=== PATIENT | male | born 1995 | race Caucasian/White ===

== ENCOUNTER 2021-12-17 12:42 | Emergency (ER) | payer OTHER, SELFPAY ==
[2021-12-17 13:02] VITALS: BP 134/89; PULSE 97; RESP 22; TEMP 37.1; O2SAT 100
--- NOTE | 2021-12-17 13:06 | DI.RAD.S_ITS ---
PROCEDURE: XR CHEST 1V INDICATIONS: chest pain TECHNIQUE: One view of the chest was acquired. COMPARISON: None. FINDINGS: Surgical changes and devices: None. Lungs and pleura: Lungs are clear. No pleural effusions or pneumothorax. Mediastinum: Mediastinal contours appear normal. Heart size is normal. Bones and chest wall: No suspicious bony lesions. Overlying soft tissues appear unremarkable. IMPRESSION: No acute process. Dictated by: Lola Lara M.D. on 12/17/2021 at 13:45 Approved by: Lola Lara M.D. on 12/17/2021 at 13:45
[2021-12-17 13:23] LABS: Add Manual Diff / Slide Review NO; Basophils Absolute Auto 100 /uL (0-100); Basophils Percent Auto 0.7 % (0-2); Eosinophils Absolute Auto 500 /uL (0-450); Eosinophils Percent Auto 3.5 % (2-4); Hematocrit 41.4 % (41-53); Hemoglobin 14.7 g/dL (13.5-17.5); Lymphocytes Absolute Auto 2600 /uL (1100-4500); Lymphocytes Percent Auto 19.4 % (25-40); Mean Corpuscular HGB Conc 35.5 % (30-36); Mean Corpuscular Hemoglobin 34.3 PG (26-34); Mean Corpuscular Volume 96.5 fL (80-100); Monocytes Absolute Auto 1100 /uL (0-900); Monocytes Percent Auto 8.3 % (3-14); Neutrophils Absolute Auto 9000 /uL (1500-7000); Neutrophils Percent Auto 68.1 % (50-75); Platelet Count 300 X10^3/uL (150-400); Red Blood Cell Count 4.29 X10^6/uL (4.5-5.9); White Blood Cell Count 13.2 X10^3/uL (4.5-11.0)
--- NOTE | 2021-12-17 13:31 | ED.CHESTPAIN ---
HPI - Chest Pain General Chief Complaint: Chest Pain Stated Complaint: Chest pain Time Seen by Provider: 12/17/21 13:15 Source: patient Mode of arrival: Ambulatory History of Present Illness HPI narrative: Patient is a healthy 26-year-old male who presents with 2 days of chest discomfort. He says it hurts every time he takes a breath it is sharp and stabbing. He says it hurts every time he breathes or moves. He was unable to sleep last night could not get comfortable. He has not had any fevers or shortness of breath. It seems to be in the center of his chest really nonradiating sometimes on the right. Id he is only short of breath as he feels like he cannot take a deep breath. He has never had anything like this before. Patient states that he does smoke and vape Related Data Allergies Allergy/AdvReac Type Severity Reaction Status Date / Time No Known Drug Allergies Allergy Verified 12/17/21 13:05 Review of Systems Review of Systems Narrative: GENERAL: Denies chills, fatigue, malaise, fever, sweats, travel HEENT: Denies sinus pain, ear pain, sore throat, difficulty swallowing, neck pain RESPIRATORY: Denies dyspnea, cough, wheezing, hemoptysis, sputum. CARDIOVASCULAR: see HPI GASTROINTESTINAL: Denies nausea, vomiting, abdominal pain, diarrhea, constipation, melena. : Denies dysuria, frequency, incontinence, hematuria, urinary retention, flank pain. MUSCULOSKELETAL: Denies weakness, joint pain, or bony pain SKIN: No rash, no erythema, no pruritus NEUROLOGIC: Denies weakness, dizziness, headache, numbness, change in speech, confusion PSYCHIATRIC: No concerning psychosocial issues. 12 point review of systems is negative except for those stated above and HPI Patient History Social History Smoking Status: Current every day smoker Smoking Status: Current every day smoker tobacco type: cigarettes and vaping Exam Initial Vital Signs Initial Vital Signs: Vital Signs Temperature 98.7 F 12/17/21 13:02 Pulse Rate 97 H 12/17/21 13:02 Respiratory Rate 22 12/17/21 13:02 Blood Pressure 134/89 12/17/21 13:02 Pulse Oximetry 100 12/17/21 13:02 Oxygen Delivery Method 12/17/21 13:02 GENERAL: Young 26-year-old male appears in obvious pain bracing and her HEENT: Head atraumatic,EOMI, pupils reactive, face symmetric, [moist] mucous membranes CARDIOVASCULAR: Regular rate and rhythm without murmurs, rubs or gallops. RESPIRATORY: Breath sounds equal bilaterally, no wheezes rales or rhonchi. ABDOMEN: Soft, nontender. Normoactive bowel sounds all 4 quadrants. No guarding or rebound. EXTREMITIES: Normal range of motion, no clubbing or edema. Neurovascularly intact NEUROLOGICAL: Alert and oriented x4.Normal gait and speech. SKIN: Warm, dry, no laceration, no petechiae, no rashes or lesions. Course Orders Ordered: ED Orders 12/17/21 13:06 XR chest 1V Stat EKG-12 Lead Stat 12/17/21 13:17 Complete Blood Count AUTO DIFF Stat Comprehensive Metabolic Panel Stat D Dimer Stat Lipase Stat Magnesium Stat NT-proBNP (BNP-Adult 18+) Stat Procalcitonin Stat Troponin & CK Cardiac Panel Stat 12/17/21 14:12 COVID19 -Nasal RAPID/Pre-Proc Stat Discontinued Medications Aspirin (Aspirin 81 Mg Chew Tab) 324 mg PO NOW ONE Stop: 12/17/21 13:07 Last Admin: 12/17/21 14:17 Dose: 324 mg Documented By: JESSICA Ketorolac Tromethamine (Ketorolac 30 Mg/Ml Vial) 15 mg IV NOW ONE Stop: 12/17/21 13:33 Last Admin: 12/17/21 14:17 Dose: 15 mg Documented By: JESSICA Morphine Sulfate (Morphine 4 Mg/Ml Inj) 4 mg IV NOW ONE Stop: 12/17/21 13:40 Last Admin: 12/17/21 14:17 Dose: 4 mg Documented By: JESSICA Vital Signs Vital signs: Vital Signs - 8 hr 12/17/21 13:02 12/17/21 16:00 12/17/21 16:00 Temperature 98.7 F Pulse Rate 97 H 88 Respiratory Rate 22 Blood Pressure 134/89 120/74 Pulse Oximetry 100 97 Oxygen Delivery Method Room Air 12/17/21 16:30 12/17/21 16:30 Temperature Pulse Rate 70 Respiratory Rate Blood Pressure 112/70 Pulse Oximetry 97 Oxygen Delivery Method MDM - Chest Pain Lab Data Result diagrams: 12/17/21 13:17 12/17/21 13:17 Labs: Lab Results 12/17/21 12/17/21 12/17/21 Range/Units 13:17 13:17 13:17 WBC 13.2 H (4.5-11.0) X10^3/uL RBC 4.29 L (4.5-5.9) X10^6/uL Hgb 14.7 (13.5-17.5) g/dL Hct 41.4 (41-53) % MCV 96.5 (80-100) fL MCH 34.3 H (26-34) PG MCHC 35.5 (30-36) % RDW 13.0 (11.6-14.8) % Plt Count 300 (150-400) X10^3/uL Neut % (Auto) 68.1 (50-75) % Lymph % (Auto) 19.4 L (25-40) % [place] % (Auto) 8.3 (3-14) % Eos % (Auto) 3.5 (2-4) % Baso % (Auto) 0.7 (0-2) % Neut # (Auto) 9000 H (1273-6387) /uL Lymph # (Auto) 2600 (0537-8519) /uL [place] # (Auto) 1100 H (0-900) /uL Eos # (Auto) 500 H (0-450) /uL Baso # (Auto) 100 (0-100) /uL D-Dimer 207 (<230) ng/mL Sodium 140 (137-145) mmol/L Potassium 4.3 (3.4-5.1) mmol/L Chloride 100 (98-107) mmol/L Carbon Dioxide 30 (22-32) mmol/L BUN 14 (9-20) mg/dL Creatinine 0.97 (0.66-1.25) mg/dL Estimated GFR > 60 (>60) mL/min BUN/Creatinine Ratio 14.4 (6-22) Glucose 105 H (70-100) mg/dL Calcium 10.0 (8.4-10.2) mg/dL Magnesium 2.0 (1.6-2.3) mg/dL Total Bilirubin 0.6 (0.2-1.3) mg/dL AST 40 (17-59) IU/L ALT 61 H (<50) IU/L Alkaline Phosphatase 91 (38-126) U/L Total Creatine Kinase 79 (55-170) U/L CK-MB (CK-2) TNP CK-MB (CK-2) Rel Index TNP Troponin I < 0.012 (0.01-0.034) ng/mL NT-Pro-B Natriuret Pep 14 (<125) pg/mL Total Protein 8.9 H (6.3-8.2) g/dL Albumin 5.1 H (3.5-5.0) g/dL Globulin 3.8 (1.7-4.1) g/dL Albumin/Globulin Ratio 1.3 (1.0-2.8) Lipase 76 (23-300) U/L Procalcitonin 0.05 (<0.5) ng/mL SARS-CoV-2 (PCR) (Negative) 12/17/21 12/17/21 Range/Units 13:17 14:12 WBC (4.5-11.0) X10^3/uL RBC (4.5-5.9) X10^6/uL Hgb (13.5-17.5) g/dL Hct (41-53) % MCV (80-100) fL MCH (26-34) PG MCHC (30-36) % RDW (11.6-14.8) % Plt Count (150-400) X10^3/uL Neut % (Auto) (50-75) % Lymph % (Auto) (25-40) % [place] % (Auto) (3-14) % Eos % (Auto) (2-4) % Baso % (Auto) (0-2) % Neut # (Auto) (5068-6027) /uL Lymph # (Auto) (6847-5444) /uL [place] # (Auto) (0-900) /uL Eos # (Auto) (0-450) /uL Baso # (Auto) (0-100) /uL D-Dimer (<230) ng/mL Sodium (137-145) mmol/L Potassium (3.4-5.1) mmol/L Chloride (98-107) mmol/L Carbon Dioxide (22-32) mmol/L BUN (9-20) mg/dL Creatinine (0.66-1.25) mg/dL Estimated GFR (>60) mL/min BUN/Creatinine Ratio (6-22) Glucose (70-100) mg/dL Calcium (8.4-10.2) mg/dL Magnesium (1.6-2.3) mg/dL Total Bilirubin (0.2-1.3) mg/dL AST (17-59) IU/L ALT (<50) IU/L Alkaline Phosphatase (38-126) U/L Total Creatine Kinase (55-170) U/L CK-MB (CK-2) CK-MB (CK-2) Rel Index Troponin I (0.01-0.034) ng/mL NT-Pro-B Natriuret Pep Cancelled (<125) pg/mL Total Protein (6.3-8.2) g/dL Albumin (3.5-5.0) g/dL Globulin (1.7-4.1) g/dL Albumin/Globulin Ratio (1.0-2.8) Lipase (23-300) U/L Procalcitonin Cancelled (<0.5) ng/mL SARS-CoV-2 (PCR) Negative (Negative) Imaging Data Chest x-ray: Radiologist's Impression: ROSA Mosley [id number] XRay Report Signed Patient: Ralph St MR#: [id number] : 1995 Acct:[id number] Age/Sex: 26 / M Date of Service: 12/17/21 Loc: ED Accession Number: [id number] ?? Procedure: XR chest 1V Ordering Provider: Nan Dinh D.O. PROCEDURE:? XR CHEST 1V ? INDICATIONS:? chest pain ? TECHNIQUE:? One view of the chest was acquired.? ? COMPARISON:? None. ? FINDINGS:? ? Surgical changes and devices:? None.? ? Lungs and pleura:? Lungs are clear.? No pleural effusions or pneumothorax.? ? Mediastinum:? Mediastinal contours appear normal.? Heart size is normal.? ? Bones and chest wall:? No suspicious bony lesions.? Overlying soft tissues appear unremarkable.? ? IMPRESSION:? No acute process. ? ? Dictated by: Lola Lara M.D. on 12/17/2021 at 13:45 ? ? ECG Data Interpretation: Sinus rhythm rate 90 p.r. interval 136 QRS [address] changes no T-wave inversion [facility] Narrative Medical decision making narrative: Patient is feeling significantly better after Toradol and morphine. I did did perform a bedside ultrasound good lung pleuritic movement bilaterally no pericardial effusion noted. Troponin is in blood work overall reassuring. Likely of pleurisy possibly from vaping/smoking. No sign of pneumonia. Patient's pain is really not cardiac in nature. Pain has been ongoing for 24 hours he has no EKG changes. Head seems to be worse with movement and breathing which is more consistent with pleurisy rather than coronary artery disease. D-dimer is negative BNP is negative. Overall he is clinically improved while in the emergency department. Discharge Plan Departure Patient Disposition: Home Clinical Impression: Acute pleurisy without pleural effusion Instructions: Pleurisy Activity Restrictions/Additional Instructions: *You have been diagnosed with pleurisy *What to do: You likely have inflammation around the lining of your lungs. Recommend NSAIDs such as ibuprofen for the next 1-2 weeks. I also recommend stopping facing and smoking his this may be causing it. *Continue to take medications as directed Ibuprofen 800 mg every 8 hours her about 1-2 weeks *Follow up with your primary care provider in 2-3 days or call [phone] *Return to ER if you should have increasing pain fever shortness of breath or any new, worsening or concerning symptoms Referrals: [facility] [Provider Group] Visit Report Forms: Patient Portal/API
[2021-12-17 13:34] LABS: D Dimer 207 ng/mL (<230)
[2021-12-17 13:36] LABS: Alanine Aminotransferase 61 IU/L (<50); Albumin 5.1 g/dL (3.5-5.0); Albumin Globulin Ratio 1.3 (1.0-2.8); Alkaline Phosphatase 91 U/L (38-126); Aspartate Aminotransferase 40 IU/L (17-59); BUN Creatinine Ratio 14.4 (6-22); Bilirubin Total 0.6 mg/dL (0.2-1.3); Blood Urea Nitrogen 14 mg/dL (9-20); Carbon Dioxide 30 mmol/L (22-32); Chloride 100 mmol/L (98-107); Creatine Kinase 79 U/L (55-170); Estimated Glomerular Filt Rate > 60 mL/min (>60); Globulin 3.8 g/dL (1.7-4.1); Glucose 105 mg/dL (70-100); HEMOLYSIS < 15 (0-50); Lipase 76 U/L (23-300); Potassium 4.3 mmol/L (3.4-5.1); Sodium 140 mmol/L (137-145); Total Protein 8.9 g/dL (6.3-8.2)
[2021-12-17 13:48] LABS: NT-proBNP (BNP-Adult 18+) 14 pg/mL (<125); Troponin I < 0.012 ng/mL (0.01-0.034)
[2021-12-17 13:52] LABS: Procalcitonin 0.05 ng/mL (<0.5)
[2021-12-17] MEDS: ASPIRIN 81 MG CHEW TAB 324 MG PO (14:17)
[2021-12-17] MEDS: KETOROLAC 30 MG/ML VIAL 15 MG IV (14:17)
[2021-12-17] MEDS: MORPHINE 4 MG/ML INJ IV (14:17)
[2021-12-17 14:37] LABS: COVID19 -Nasal RAPID Negative (Negative)
[2021-12-17 16:00] VITALS: BP 120/74; PULSE 88; O2SAT 97
[2021-12-17 16:30] VITALS: BP 112/70; PULSE 70; O2SAT 97
== END 2021-12-17 16:43 | disposition home or self-care (01) ==
PROVIDERS: Emergency Provider Emergency Medicine
DX: R09.1 Pleurisy (principal); Z20.822 Contact with and (suspected) exposure to COVID-19
CPT/HCPCS: 36415; 71045; 80053; 82550; 83690; 83735; 83880; 84145; 84484; 85025; 85379; 87635; 93005; 96374; 96375; 99284; C9803; J1885; J2270

== ENCOUNTER 2022-02-03 13:55 | Emergency (ER) | payer OTHER, SELFPAY ==
[2022-02-03] VITALS (16 sets, daily range): BP systolic 109–133; BP diastolic 59–77; PULSE 63–98; RESP 12–24; TEMP 36.9; O2SAT 96–100; BMI 21.2
--- NOTE | 2022-02-03 13:58 | DI.RAD.S_ITS ---
PROCEDURE: XR CHEST 1V INDICATIONS: chest pain TECHNIQUE: One view of the chest was acquired. COMPARISON: [facility], CR, XR CHEST 1V, 12/17/2021, 13:28. FINDINGS: Surgical changes and devices: None. Lungs and pleura: Small right apical pneumothorax. Small right upper lobe opacity is seen uncertain etiology. Lungs are otherwise clear. No pleural effusion. Mediastinum: Mediastinal contours appear normal. Heart size is normal. Bones and chest wall: No suspicious bony lesions. Overlying soft tissues appear unremarkable. IMPRESSION: 1. Small right apical pneumothorax. 2. Small right upper lobe airspace opacity, possibly within a pneumatocele or cavitation. Tuberculosis is not excluded. CT could be performed for further evaluation if indicated clinically. Dictated by: Rajendra Chowdhury M.D. on 02/03/2022 at 13:33 Approved by: Rajendra Chowdhury M.D. on 02/03/2022 at 13:39
[2022-02-03 14:42] LABS: COVID19 -Nasal RAPID Negative (Negative)
[2022-02-03 15:14] LABS: Add Manual Diff / Slide Review NO; Basophils Absolute Auto 100 /uL (0-100); Basophils Percent Auto 0.4 % (0-2); Eosinophils Absolute Auto 800 /uL (0-450); Eosinophils Percent Auto 4.6 % (2-4); Hematocrit 41.8 % (41-53); Hemoglobin 14.6 g/dL (13.5-17.5); Lymphocytes Absolute Auto 1700 /uL (1100-4500); Lymphocytes Percent Auto 9.3 % (25-40); Mean Corpuscular Hemoglobin 34.2 PG (26-34); Mean Corpuscular Volume 97.6 fL (80-100); Monocytes Absolute Auto 1200 /uL (0-900); Monocytes Percent Auto 6.3 % (3-14); Neutrophils Absolute Auto 14700 /uL (1500-7000); Neutrophils Percent Auto 79.4 % (50-75); Platelet Count 282 X10^3/uL (150-400); Red Blood Cell Count 4.28 X10^6/uL (4.5-5.9); Red Cell Distribution Width 13.3 % (11.6-14.8); White Blood Cell Count 18.5 X10^3/uL (4.5-11.0)
[2022-02-03 15:32] LABS: Erythrocyte Sedimentation Rate 22 MM/HR (0-15)
[2022-02-03 15:34] LABS: Alanine Aminotransferase 31 IU/L (<50); Albumin 4.5 g/dL (3.5-5.0); Albumin Globulin Ratio 1.1 (1.0-2.8); Alkaline Phosphatase 91 U/L (38-126); Aspartate Aminotransferase 37 IU/L (17-59); BUN Creatinine Ratio 14.8 (6-22); Bilirubin Total 1.3 mg/dL (0.2-1.3); Blood Urea Nitrogen 12 mg/dL (9-20); Calcium 9.2 mg/dL (8.4-10.2); Carbon Dioxide 23 mmol/L (22-32); Chloride 104 mmol/L (98-107); Creatine Kinase 250 U/L (55-170); Estimated Glomerular Filt Rate > 60 mL/min (>60); Globulin 4.1 g/dL (1.7-4.1); Glucose 84 mg/dL (70-100); Lipase 57 U/L (23-300); Potassium 4.2 mmol/L (3.4-5.1); Sodium 139 mmol/L (137-145); Total Protein 8.6 g/dL (6.3-8.2)
--- NOTE | 2022-02-03 15:34 | PC.NURSE ---
placed on 15L NRB per request from Dr. Wasserman.
--- NOTE | 2022-02-03 15:38 | ED.CHESTPAIN ---
HPI - Chest Pain <Unique Wasserman DO - Last Filed: 02/04/22 20:36> General Chief Complaint: Chest Pain Stated Complaint: Chest pain Time Seen by Provider: 02/03/22 14:49 Source: patient Mode of arrival: Ambulatory Limitations: no limitations Limitations: no limitations History of Present Illness HPI narrative: This is a 26-year-old male who comes emergency department with complaint of right-sided chest pain that started while having a coughing fit and about 11:00 a.m. this morning. Patient states he is had 1 prior episode in the past and was told he had pleurisy. Patient states he is had upper respiratory congestion with cough with green productive sputum for several days. No fevers. No chest pain until after the coughing fit. Patient states he has pleuritic chest pain. He is not sure if he really feels short of breath or if it just hurts to take a deep breath. No nausea, no vomiting, no swelling of extremities, no other GI or urinary complaints. Patient states last time he had this happen it was the same there was a coughing he developed pain all of the sudden and was seen in the emergency department and told he had pleurisy. Patient denies any daily medications, no surgeries. Patient uses tobacco occasional vaping but not regularly, occasional alcohol but not regularly, occasional THC denies other illicit. Denies any IV drug use. Denies any recent travel. No known TB contacts. No homeless or shelter contacts. Patient does not any known drug allergies. No family history of pneumothorax, patient does not have any history of pneumothorax. 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 Related Data Allergies Allergy/AdvReac Type Severity Reaction Status Date / Time No Known Drug Allergies Allergy Verified 12/17/21 13:05 Review of Systems <Unique Wasserman DO - Last Filed: 02/04/22 20:36> Review of Systems ROS Unobtainable: All systems reviewed & are unremarkable except as noted in HPI and below Patient History <Unique Wasserman DO - Last Filed: 02/04/22 20:36> Medical History (Updated 02/03/22 @ 21:46 by Jeff Monet DO) Healthy adult Social History Smoking Status: Current every day smoker Smoking Status: Current every day smoker tobacco type: cigarettes and vaping Exam <Unique Wasserman DO - Last Filed: 02/04/22 20:36> Narrative Exam Narrative: GENERAL: Alert and oriented x three, thin muscular male in mild distress. HEENT: Head normocephalic, atraumatic, EOMI, pupils reactive, face symmetric, moist mucous membranes NECK: Supple, full range of motion CARDIOVASCULAR: Regular rate and rhythm without murmurs, rubs or gallops. No JVD. RESPIRATORY: Breath sounds equal bilaterally, no wheezes rales or rhonchi. Slightly decreased sounds in the right upper, no tachypnea accessory muscle use. ABDOMEN: Soft, nontender. Normoactive bowel sounds all 4 quadrants. No guarding or rebound, rigidity, no mass : No CVA tenderness EXTREMITIES: Normal range of motion, no clubbing or edema. Neurovascularly intact NEUROLOGICAL: Cranial nerves II through XII grossly intact. Moving all extremities SKIN: Warm, dry, no petechiae, no rashes or lesions. Initial Vital Signs Initial Vital Signs: Vital Signs Temperature 98.4 F 02/03/22 13:59 Pulse Rate 98 H 02/03/22 13:59 Respiratory Rate 24 02/03/22 13:59 Blood Pressure 124/77 02/03/22 13:59 Pulse Oximetry 96 02/03/22 13:59 Oxygen Delivery Method 02/03/22 13:59 <Jeff Monet DO - Last Filed: 02/03/22 21:47> Initial Vital Signs Initial Vital Signs: Vital Signs Temperature 98.4 F 02/03/22 13:59 Pulse Rate 98 H 02/03/22 13:59 Respiratory Rate 24 02/03/22 13:59 Blood Pressure 124/77 02/03/22 13:59 Pulse Oximetry 96 02/03/22 13:59 Oxygen Delivery Method 02/03/22 13:59 Course <Unique Wasserman DO - Last Filed: 02/04/22 20:36> Orders Ordered: Discontinued Medications Piperacillin Sod/Tazobactam (Sod 4.5 gm/ Sodium Chloride) 100 mls @ 200 mls/hr IV NOW ONE Stop: 02/03/22 17:17 Last Infusion: 02/03/22 18:22 Dose: 0 mls/hr Documented By: Admin: 02/03/22 17:46 Dose: 200 mls/hr Documented By: AT Clindamycin Phosphate (Cleocin) 900 mg in 50 mls @ 50 mls/hr IV NOW ONE Stop: 02/03/22 18:17 Last Infusion: 02/03/22 19:30 Dose: 0 mls/hr Documented By: Admin: 02/03/22 18:22 Dose: 50 mls/hr Documented By: AT Piperacillin Sod/Tazobactam (Sod 4.5 gm/ Sodium Chloride) 100 mls @ 25 mls/hr IV Q8H VESTA Clindamycin Phosphate (Cleocin) 900 mg in 50 mls @ 50 mls/hr IV Q6H VESTA Piperacillin Sod/Tazobactam (Sod 3.375 gm/ Sodium Chloride) 100 mls @ 25 mls/hr IV Q8H VESTA Last Admin: 02/03/22 22:09 Dose: Not Given Documented By: AT Ketorolac Tromethamine (Ketorolac 30 Mg/Ml Vial) 15 mg IV NOW ONE Stop: 02/03/22 18:48 Last Admin: 02/03/22 19:35 Dose: 15 mg Documented By: KF Morphine Sulfate (Morphine 2 Mg/Ml Inj) 2 mg IV Q4HR PRN PRN Reason: Pain, Moderate (4-6) Last Admin: 02/03/22 22:38 Dose: 2 mg Documented By: Admin: 02/03/22 17:47 Dose: 2 mg Documented By: AT Ondansetron HCl (Ondansetron 4 Mg/2 Ml Inj) 4 mg IV Q6HR PRN PRN Reason: Nausea And Vomiting Vital Signs Vital signs: Vital Signs - 8 hr 02/03/22 13:59 02/03/22 15:11 02/03/22 15:34 Temperature 98.4 F Pulse Rate 98 H 67 68 Respiratory Rate 24 22 20 Blood Pressure 124/77 133/64 Pulse Oximetry 96 100 100 Oxygen Delivery Method Room Air Room Air Non -Rebreather Oxygen Flow Rate 15 02/03/22 17:41 02/03/22 15:30 02/03/22 16:00 Temperature Pulse Rate 75 65 Respiratory Rate 18 20 Blood Pressure 124/65 124/65 Pulse Oximetry 100 Oxygen Delivery Method Nasal Cannula Non -Rebreather Non -Rebreather Oxygen Flow Rate 2 15 15 02/03/22 18:25 02/03/22 18:30 02/03/22 19:00 Temperature Pulse Rate 63 85 Respiratory Rate 17 22 Blood Pressure 133/62 Pulse Oximetry 100 100 Oxygen Delivery Method Oxygen Flow Rate 02/03/22 19:00 Temperature Pulse Rate 94 H Respiratory Rate 22 Blood Pressure Pulse Oximetry 100 Oxygen Delivery Method Oxygen Flow Rate <Jeff Monet, - Last Filed: 02/03/22 21:47> Orders Ordered: Discontinued Medications Piperacillin Sod/Tazobactam (Sod 4.5 gm/ Sodium Chloride) 100 mls @ 200 mls/hr IV NOW ONE Stop: 02/03/22 17:17 Last Infusion: 02/03/22 18:22 Dose: 0 mls/hr Documented By: Admin: 02/03/22 17:46 Dose: 200 mls/hr Documented By: AT Clindamycin Phosphate (Cleocin) 900 mg in 50 mls @ 50 mls/hr IV NOW ONE Stop: 02/03/22 18:17 Last Infusion: 02/03/22 19:30 Dose: 0 mls/hr Documented By: Admin: 02/03/22 18:22 Dose: 50 mls/hr Documented By: AT Piperacillin Sod/Tazobactam (Sod 4.5 gm/ Sodium Chloride) 100 mls @ 25 mls/hr IV Q8H VESTA Clindamycin Phosphate (Cleocin) 900 mg in 50 mls @ 50 mls/hr IV Q6H VESTA Piperacillin Sod/Tazobactam (Sod 3.375 gm/ Sodium Chloride) 100 mls @ 25 mls/hr IV Q8H VESTA Last Admin: 02/03/22 22:09 Dose: Not Given Documented By: AT Ketorolac Tromethamine (Ketorolac 30 Mg/Ml Vial) 15 mg IV NOW ONE Stop: 02/03/22 18:48 Last Admin: 02/03/22 19:35 Dose: 15 mg Documented By: KF Morphine Sulfate (Morphine 2 Mg/Ml Inj) 2 mg IV Q4HR PRN PRN Reason: Pain, Moderate (4-6) Last Admin: 02/03/22 22:38 Dose: 2 mg Documented By: Admin: 02/03/22 17:47 Dose: 2 mg Documented By: AT Ondansetron HCl (Ondansetron 4 Mg/2 Ml Inj) 4 mg IV Q6HR PRN PRN Reason: Nausea And Vomiting Vital Signs Vital signs: Vital Signs - 8 hr 02/03/22 13:59 02/03/22 15:11 02/03/22 15:34 Temperature 98.4 F Pulse Rate 98 H 67 68 Respiratory Rate 24 22 20 Blood Pressure 124/77 133/64 Pulse Oximetry 96 100 100 Oxygen Delivery Method Room Air Room Air Non -Rebreather Oxygen Flow Rate 15 02/03/22 17:41 02/03/22 15:30 02/03/22 16:00 Temperature Pulse Rate 75 65 Respiratory Rate 18 20 Blood Pressure 124/65 124/65 Pulse Oximetry 100 Oxygen Delivery Method Nasal Cannula Non -Rebreather Non -Rebreather Oxygen Flow Rate 2 15 15 02/03/22 18:25 02/03/22 18:30 02/03/22 19:00 Temperature Pulse Rate 63 85 Respiratory Rate 17 22 Blood Pressure 133/62 Pulse Oximetry 100 100 Oxygen Delivery Method Oxygen Flow Rate 02/03/22 19:00 Temperature Pulse Rate 94 H Respiratory Rate 22 Blood Pressure Pulse Oximetry 100 Oxygen Delivery Method Oxygen Flow Rate MDM - Chest Pain <Unique Wasserman, - Last Filed: 02/04/22 20:36> Lab Data Result diagrams: 02/03/22 15:03 02/03/22 15:03 Labs: Lab Results 02/03/22 02/03/22 02/03/22 Range/Units 14:02 15:03 15:03 WBC 18.5 H (4.5-11.0) X10^3/uL RBC 4.28 L (4.5-5.9) X10^6/uL Hgb 14.6 (13.5-17.5) g/dL Hct 41.8 (41-53) % MCV 97.6 (80-100) fL MCH 34.2 H (26-34) PG MCHC 35.0 (30-36) % RDW 13.3 (11.6-14.8) % Plt Count 282 (150-400) X10^3/uL Neut % (Auto) 79.4 H (50-75) % Lymph % (Auto) 9.3 L (25-40) % [place] % (Auto) 6.3 (3-14) % Eos % (Auto) 4.6 H (2-4) % Baso % (Auto) 0.4 (0-2) % Neut # (Auto) 67192 H (3075-7212) /uL Lymph # (Auto) 1700 (5420-9326) /uL [place] # (Auto) 1200 H (0-900) /uL Eos # (Auto) 800 H (0-450) /uL Baso # (Auto) 100 (0-100) /uL ESR (0-15) MM/HR Sodium 139 (137-145) mmol/L Potassium 4.2 (3.4-5.1) mmol/L Chloride 104 (98-107) mmol/L Carbon Dioxide 23 (22-32) mmol/L BUN 12 (9-20) mg/dL Creatinine 0.81 (0.66-1.25) mg/dL Estimated GFR > 60 (>60) mL/min BUN/Creatinine Ratio 14.8 (6-22) Glucose 84 (70-100) mg/dL Lactate (0.7-2.1) mmol/L Calcium 9.2 (8.4-10.2) mg/dL Magnesium 2.0 (1.6-2.3) mg/dL Total Bilirubin 1.3 (0.2-1.3) mg/dL AST 37 (17-59) IU/L ALT 31 (<50) IU/L Alkaline Phosphatase 91 (38-126) U/L Total Creatine Kinase 250 H (55-170) U/L CK-MB (CK-2) < 0.22 (<2.37) ng/mL CK-MB (CK-2) Rel Index 0.1 L (1.5-5.0) % Troponin I < 0.012 (0.01-0.034) ng/mL C-Reactive Protein (<1.0) mg/dL NT-Pro-B Natriuret Pep (<125) pg/mL Total Protein 8.6 H (6.3-8.2) g/dL Albumin 4.5 (3.5-5.0) g/dL Globulin 4.1 (1.7-4.1) g/dL Albumin/Globulin Ratio 1.1 (1.0-2.8) Lipase 57 (23-300) U/L SARS-CoV-2 (PCR) Negative (Negative) 02/03/22 02/03/22 02/03/22 Range/Units 15:03 15:03 15:03 WBC (4.5-11.0) X10^3/uL RBC (4.5-5.9) X10^6/uL Hgb (13.5-17.5) g/dL Hct (41-53) % MCV (80-100) fL MCH (26-34) PG MCHC (30-36) % RDW (11.6-14.8) % Plt Count (150-400) X10^3/uL Neut % (Auto) (50-75) % Lymph % (Auto) (25-40) % [place] % (Auto) (3-14) % Eos % (Auto) (2-4) % Baso % (Auto) (0-2) % Neut # (Auto) (0862-5490) /uL Lymph # (Auto) (0541-4511) /uL [place] # (Auto) (0-900) /uL Eos # (Auto) (0-450) /uL Baso # (Auto) (0-100) /uL ESR 22 H (0-15) MM/HR Sodium (137-145) mmol/L Potassium (3.4-5.1) mmol/L Chloride (98-107) mmol/L Carbon Dioxide (22-32) mmol/L BUN (9-20) mg/dL Creatinine (0.66-1.25) mg/dL Estimated GFR (>60) mL/min BUN/Creatinine Ratio (6-22) Glucose (70-100) mg/dL Lactate 1.1 (0.7-2.1) mmol/L Calcium (8.4-10.2) mg/dL Magnesium (1.6-2.3) mg/dL Total Bilirubin (0.2-1.3) mg/dL AST (17-59) IU/L ALT (<50) IU/L Alkaline Phosphatase (38-126) U/L Total Creatine Kinase (55-170) U/L CK-MB (CK-2) (<2.37) ng/mL CK-MB (CK-2) Rel Index (1.5-5.0) % Troponin I (0.01-0.034) ng/mL C-Reactive Protein 3.0 H (<1.0) mg/dL NT-Pro-B Natriuret Pep 22 (<125) pg/mL Total Protein (6.3-8.2) g/dL Albumin (3.5-5.0) g/dL Globulin (1.7-4.1) g/dL Albumin/Globulin Ratio (1.0-2.8) Lipase (23-300) U/L SARS-CoV-2 (PCR) (Negative) Imaging Data Chest x-ray: Radiologist's Impression: Ralph St??26??M??1995 ? Allergy/Adv: No Known Drug Allergies Close Chest X-Ray (Signed) Rajendra Chowdhury - 02/03/22 EKG Rpt. 12/17/21 Chest X-Ray (Signed) Lola Lara - 12/17/21 Launch?Image [address] [address] XRay Report Signed Patient: Ralph St MR#: [id number] : 1995 Acct:[id number] Age/Sex: 26 / M Date of Service: 02/03/22 Loc: ED Accession Number: [id number] ?? Procedure: XR chest 1V Ordering Provider: Unique Wasserman D.O. PROCEDURE:? XR CHEST 1V ? INDICATIONS:? chest pain ? TECHNIQUE:? One view of the chest was acquired.? ? COMPARISON:? [facility], , XR CHEST 1V, 12/17/2021, 13:28. ? FINDINGS:? ? Surgical changes and devices:? None.? ? Lungs and pleura:? Small right apical pneumothorax.? Small right upper lobe opacity is seen uncertain etiology.? Lungs are otherwise clear.? No pleural effusion. ? Mediastinum:? Mediastinal contours appear normal.? Heart size is normal.? ? Bones and chest wall:? No suspicious bony lesions.? Overlying soft tissues appear unremarkable.? ? IMPRESSION:? 1. Small right apical pneumothorax. 2. Small right upper lobe airspace opacity, possibly within a pneumatocele or cavitation. ?Tuberculosis is not excluded. CT could be performed for further evaluation if indicated clinically.? ? Dictated by: Rajendra Chowdhury M.D. on 02/03/2022 at 13:33 ? ? Approved by: Rajendra Chowdhury M.D. on 02/03/2022 at 13:39?? ECG Data Attestation: I personally reviewed and interpreted this ECG as follows: Prior ECG tracings: available for review Interpretation: Sinus rhythm rate 80 HI 138 QRS is 74 and QTC 399. No acute ST elevation or depression. Patient has prior from 12/17/2021 which appears similar. MDM Narrative Medical decision making narrative: 26-year-old male with sudden onset right-sided chest pain during a coughing fit patient has had recent productive green sputum he is noted to have small right apical pneumothorax, questionable right upper lobe opacity. Patient states he has been sick recently. He had similar episode once prior had no pneumothorax found at that time. Patient's labs today show leukocytosis, reassuring EKG does not show significant change appears similar to prior. CT chest was ordered. Patient has versus malignancy versus TB. Discussed with our general surgeon will hold off on chest tube as small apical pneumo appears quite stable. IV antibiotics were started, attempting to see about transfer for pulmonology, possible ID and interventional radiology which we do not have any of these available. Patient states he is otherwise healthy denies any IV drug use or other high risk factors he has traveled internationally but not since he was deployed in 2019 to [employer]. COVID is negative. Patient signed out to Dr. Monet while awaiting transfer, continuing to seek placement. Dr monet: Received turned over. Reviewed patient's history and physical exam. Reviewed patient's radiologic studies. Patient is stable. Is on 2 L of nasal cannula. Given the size of the pneumothorax we will hold on any chest tube for now unless he decompensates. Dr. Wasserman did administer antibiotics. Patient is active duty. Discussed with thoracic surgery at [facility] who accepts the patient in transfer. Patient is stable for transport. He was informed of the location in the need for transfer and he expressed understanding and agreement. <Jeff Monet, DO - Last Filed: 02/03/22 21:47> Lab Data Labs: Lab Results 02/03/22 02/03/22 02/03/22 Range/Units 14:02 15:03 15:03 WBC 18.5 H (4.5-11.0) X10^3/uL RBC 4.28 L (4.5-5.9) X10^6/uL Hgb 14.6 (13.5-17.5) g/dL Hct 41.8 (41-53) % MCV 97.6 (80-100) fL MCH 34.2 H (26-34) PG MCHC 35.0 (30-36) % RDW 13.3 (11.6-14.8) % Plt Count 282 (150-400) X10^3/uL Neut % (Auto) 79.4 H (50-75) % Lymph % (Auto) 9.3 L (25-40) % [place] % (Auto) 6.3 (3-14) % Eos % (Auto) 4.6 H (2-4) % Baso % (Auto) 0.4 (0-2) % Neut # (Auto) 33157 H (7513-7683) /uL Lymph # (Auto) 1700 (4645-8802) /uL [place] # (Auto) 1200 H (0-900) /uL Eos # (Auto) 800 H (0-450) /uL Baso # (Auto) 100 (0-100) /uL ESR (0-15) MM/HR Sodium 139 (137-145) mmol/L Potassium 4.2 (3.4-5.1) mmol/L Chloride 104 (98-107) mmol/L Carbon Dioxide 23 (22-32) mmol/L BUN 12 (9-20) mg/dL Creatinine 0.81 (0.66-1.25) mg/dL Estimated GFR > 60 (>60) mL/min BUN/Creatinine Ratio 14.8 (6-22) Glucose 84 (70-100) mg/dL Lactate (0.7-2.1) mmol/L Calcium 9.2 (8.4-10.2) mg/dL Magnesium 2.0 (1.6-2.3) mg/dL Total Bilirubin 1.3 (0.2-1.3) mg/dL AST 37 (17-59) IU/L ALT 31 (<50) IU/L Alkaline Phosphatase 91 (38-126) U/L Total Creatine Kinase 250 H (55-170) U/L CK-MB (CK-2) < 0.22 (<2.37) ng/mL CK-MB (CK-2) Rel Index 0.1 L (1.5-5.0) % Troponin I < 0.012 (0.01-0.034) ng/mL C-Reactive Protein (<1.0) mg/dL NT-Pro-B Natriuret Pep (<125) pg/mL Total Protein 8.6 H (6.3-8.2) g/dL Albumin 4.5 (3.5-5.0) g/dL Globulin 4.1 (1.7-4.1) g/dL Albumin/Globulin Ratio 1.1 (1.0-2.8) Lipase 57 (23-300) U/L SARS-CoV-2 (PCR) Negative (Negative) 02/03/22 02/03/22 02/03/22 Range/Units 15:03 15:03 15:03 WBC (4.5-11.0) X10^3/uL RBC (4.5-5.9) X10^6/uL Hgb (13.5-17.5) g/dL Hct (41-53) % MCV (80-100) fL MCH (26-34) PG MCHC (30-36) % RDW (11.6-14.8) % Plt Count (150-400) X10^3/uL Neut % (Auto) (50-75) % Lymph % (Auto) (25-40) % [place] % (Auto) (3-14) % Eos % (Auto) (2-4) % Baso % (Auto) (0-2) % Neut # (Auto) (7443-0863) /uL Lymph # (Auto) (9079-3795) /uL [place] # (Auto) (0-900) /uL Eos # (Auto) (0-450) /uL Baso # (Auto) (0-100) /uL ESR 22 H (0-15) MM/HR Sodium (137-145) mmol/L Potassium (3.4-5.1) mmol/L Chloride (98-107) mmol/L Carbon Dioxide (22-32) mmol/L BUN (9-20) mg/dL Creatinine (0.66-1.25) mg/dL Estimated GFR (>60) mL/min BUN/Creatinine Ratio (6-22) Glucose (70-100) mg/dL Lactate 1.1 (0.7-2.1) mmol/L Calcium (8.4-10.2) mg/dL Magnesium (1.6-2.3) mg/dL Total Bilirubin (0.2-1.3) mg/dL AST (17-59) IU/L ALT (<50) IU/L Alkaline Phosphatase (38-126) U/L Total Creatine Kinase (55-170) U/L CK-MB (CK-2) (<2.37) ng/mL CK-MB (CK-2) Rel Index (1.5-5.0) % Troponin I (0.01-0.034) ng/mL C-Reactive Protein 3.0 H (<1.0) mg/dL NT-Pro-B Natriuret Pep 22 (<125) pg/mL Total Protein (6.3-8.2) g/dL Albumin (3.5-5.0) g/dL Globulin (1.7-4.1) g/dL Albumin/Globulin Ratio (1.0-2.8) Lipase (23-300) U/L SARS-CoV-2 (PCR) (Negative) Imaging Data CT scan - chest: Radiologist's Impression: [place] [address] CT Scan Report Signed Patient: Ralph St MR#: [id number] : 1995 Acct:[id number] Age/Sex: 26 / M Date of Service: 02/03/22 Loc: Accession Number: [id number] ?? Procedure: CT chest w con Ordering Provider: Unique Wasserman D.O. PROCEDURE:? CT CHEST W CON ? INDICATIONS:? apical pneumo/right upper lobe opacity ? TECHNIQUE:? After the administration of intravenous contrast, 5 mm thick sections acquired from the pulmonary apices to the posterior costophrenic angles.? 1 mm axial lung, 5 mm thick coronal and sagittal reformats and 7 mm axial MIP were acquired.? For radiation dose reduction, the following was used:? automated exposure control, adjustment of mA and/or kV according to patient size.? ? COMPARISON:? [facility], CR, XR CHEST 1V, 02/03/2022, 13:58. ? FINDINGS:? Image quality:? Excellent.? ? Lungs and pleura:? Small right pneumothorax.? A few small apical blebs are present.? Posterolateral right upper lobe opacity is seen with central cavitation.? A few additional small nodules are seen in the posterior right upper lobe.? Soft tissue density is seen extending inferiorly from the lesion in there is a possible spiculated lesion in the region of the right major fissure extending into the right lower lobe.? Small foci of air seen in the pleural space adjacent to the peripheral opacity, and it is unclear if the pneumothorax is secondary to this lesion or the apical blebs.? Trace right pleural effusion with atelectasis of the posterior right lung base.? The left lung is clear. ? Mediastinum:? Heart size is normal.? No pericardial effusion.? No mediastinal or hilar adenopathy by size criteria.? Thoracic aorta and central pulmonary arteries are normal in size.? Esophagus is normal in caliber.? No hiatal hernia.? ? Bones and chest wall:? No suspicious bony lesions.? No vertebral body compression fractures.? No axillary or supraclavicular adenopathy by size criteria.? Thyroid is unremarkable.? .? ? Abdomen:? Visualized upper abdominal solid organs appear normal.? Upper abdominal bowel loops are normal in caliber.? ? IMPRESSION:? 1. Right upper lobe peripheral masslike consolidation with central cavitation and surrounding right upper lobe nodularity.? A spiculated component extends inferiorly and crosses the oblique fissure to involve the right lower lobe.? Findings may represent a cavitary infectious or inflammatory process or abscess versus malignancy versus postinflammatory pneumatocele with a superimposed infectious or inflammatory process. 2. Small right-sided pneumothorax.? 3. Trace right pleural effusion.? ? Dictated by: Rajendra Chowdhury M.D. on 02/03/2022 at 15:54 ? ? Approved by: Rajendra Chowdhury M.D. on 02/03/2022 at 16:09? [facility] Narrative Medical decision making narrative: 26-year-old male with sudden onset right-sided chest pain during a coughing fit patient has had recent productive green sputum he is noted to have small right apical pneumothorax, questionable right upper lobe opacity. Patient states he has been sick recently. He had similar episode once prior had no pneumothorax found at that time. Patient's labs today show leukocytosis, reassuring EKG does not show significant change appears similar to prior. CT chest was ordered. Patient has versus malignancy versus TB. Discussed with our general surgeon will hold off on chest tube as small apical pneumo appears quite stable. IV antibiotics were started, attempting to see about transfer for pulmonology, possible ID and interventional radiology which we do not have any of these available. Patient states he is otherwise healthy denies any IV drug use or other high risk factors he has traveled internationally but not since he was deployed in 2019 to [place]. COVID is negative. Dr monet: Received turned over. Reviewed patient's history and physical exam. Reviewed patient's radiologic studies. Patient is stable. Is on 2 L of nasal cannula. Given the size of the pneumothorax we will hold on any chest tube for now unless he decompensates. Dr. Wasserman did administer antibiotics. Patient is active duty. Discussed with thoracic surgery at [facility] who accepts the patient in transfer. Patient is stable for transport. He was informed of the location in the need for transfer and he expressed understanding and agreement. Discharge Plan Departure Patient Disposition: [facility] Clinical Impression: Pneumothorax, Right upper lobe consolidation, Pulmonary cavitary lesion Referrals: Provider,Shellie BONILLA [Primary Care Provider] -
--- NOTE | 2022-02-03 15:39 | DI.CT.S_ITS ---
PROCEDURE: CT CHEST W CON INDICATIONS: apical pneumo/right upper lobe opacity TECHNIQUE: After the administration of intravenous contrast, 5 mm thick sections acquired from the pulmonary apices to the posterior costophrenic angles. 1 mm axial lung, 5 mm thick coronal and sagittal reformats and 7 mm axial MIP were acquired. For radiation dose reduction, the following was used: automated exposure control, adjustment of mA and/or kV according to patient size. COMPARISON: [facility], CR, XR CHEST 1V, 02/03/2022, 13:58. FINDINGS: Image quality: Excellent. Lungs and pleura: Small right pneumothorax. A few small apical blebs are present. Posterolateral right upper lobe opacity is seen with central cavitation. A few additional small nodules are seen in the posterior right upper lobe. Soft tissue density is seen extending inferiorly from the lesion in there is a possible spiculated lesion in the region of the right major fissure extending into the right lower lobe. Small foci of air seen in the pleural space adjacent to the peripheral opacity, and it is unclear if the pneumothorax is secondary to this lesion or the apical blebs. Trace right pleural effusion with atelectasis of the posterior right lung base. The left lung is clear. Mediastinum: Heart size is normal. No pericardial effusion. No mediastinal or hilar adenopathy by size criteria. Thoracic aorta and central pulmonary arteries are normal in size. Esophagus is normal in caliber. No hiatal hernia. Bones and chest wall: No suspicious bony lesions. No vertebral body compression fractures. No axillary or supraclavicular adenopathy by size criteria. Thyroid is unremarkable. . Abdomen: Visualized upper abdominal solid organs appear normal. Upper abdominal bowel loops are normal in caliber. IMPRESSION: 1. Right upper lobe peripheral masslike consolidation with central cavitation and surrounding right upper lobe nodularity. A spiculated component extends inferiorly and crosses the oblique fissure to involve the right lower lobe. Findings may represent a cavitary infectious or inflammatory process or abscess versus malignancy versus postinflammatory pneumatocele with a superimposed infectious or inflammatory process. 2. Small right-sided pneumothorax. 3. Trace right pleural effusion. Dictated by: Rajendra Chowdhury M.D. on 02/03/2022 at 15:54 Approved by: Rajendra Chowdhury M.D. on 02/03/2022 at 16:09
[2022-02-03 15:42] LABS: NT-proBNP (BNP-Adult 18+) 22 pg/mL (<125)
[2022-02-03 15:44] LABS: Troponin I < 0.012 ng/mL (0.01-0.034)
[2022-02-03 15:49] LABS: HEMOLYSIS 30 (0-50)
[2022-02-03 15:51] LABS: CKMB % Relative Index 0.1 % (1.5-5.0); Creatine Kinase MB < 0.22 ng/mL (<2.37)
[2022-02-03 16:46] LABS: Lactate (Lactic Acid) 1.1 mmol/L (0.7-2.1)
[2022-02-03] MEDS: PIPERACILLIN/TAZO 4.5 GM in SODIUM CHLORIDE 0.9% 100 ML IV (17:46)
[2022-02-03] MEDS: MORPHINE 2 MG/ML INJ IV ×2 (17:47→22:38)
[2022-02-03] MEDS: CLINDAMYCIN 900 MG/50 ML PIGGYBACK 50 MG IV (18:22)
[2022-02-03] MEDS: KETOROLAC 30 MG/ML VIAL 15 MG IV (19:35)
--- NOTE | 2022-02-03 22:33 | PC.NURSE ---
Report called to [facility] [phone].
[2022-02-07 06:22] LABS: QuantiFERON Mitogen Value >10.00 IU/mL (.); QuantiFERON Nil Value 0.05 IU/mL (.); QuantiFERON TB Gold Plus Negative (Negative); QuantiFERON TB1 Ag Value 0.04 IU/mL (.); QuantiFERON TB2 Ag Value 0.05 IU/mL (.)
--- NOTE | 2022-02-20 09:53 | PC.NURSE ---
friend called to check on him, referred him to the [employer] for further info.
== END 2022-02-04 00:14 | disposition short-term general hospital (02) ==
PROVIDERS: Emergency Medicine; Emergency Provider Emergency Medicine
DX: J93.9 Pneumothorax, unspecified (principal); J18.1 Lobar pneumonia, unspecified organism; J98.4 Other disorders of lung; Z20.822 Contact with and (suspected) exposure to COVID-19
CPT/HCPCS: 36415; 71045; 71260; 80053; 82550; 82553; 83605; 83690; 83735; 83880; 84484; 85025; 85651; 86140; 86480; 87040; 87635; 93005; 96365; 96367; 96375; 96376; 99285; C9803; J1885; J2270; J2543